=== PATIENT | female | born 1950 | race Caucasian/White ===

== ENCOUNTER → 2019-04-04 | Outpatient (CLI) | payer MEDICARE ==
[~2019-04-04] MED LIST: PROHANCE 279.3MG/ML 5ML VIAL (A9576) As Ordered ONE
--- NOTE | 2019-04-04 18:44 | REPVR ---
PROCEDURE INFORMATION: Exam: MR Head Without and With Contrast Exam date and time: 04/04/2019 4:16 PM Age: 69 years old Clinical indication: Pain; Headache; Migraine; Without aura; Does respond to medication; Severity not specified; Additional info: Chronic migraines TECHNIQUE: Imaging protocol: MR of the head without and with intravenous contrast. Contrast material: PROHANCE; Contrast volume: 9 ml; Contrast route: IV; COMPARISON: No relevant prior studies available. FINDINGS: Brain: No restricted diffusion is seen to suggest acute infarction. There is no acute intracranial hemorrhage, cerebral edema, or midline shift. Age-related cerebral and cerebellar substance loss is present. Minimal scattered increased T2 and FLAIR signal within the periventricular and subcortical white matter is present. This is nonspecific but likely related to chronic microangiopathic ischemic change. No enhancing lesions were identified after the administration of contrast. Ventricles: No hydrocephalus. Bones/joints: Unremarkable. Soft tissues: Unremarkable. Sinuses: Normal as visualized. No acute sinusitis. Mastoid air cells: Normal as visualized. No mastoid effusion. Orbits: Unremarkable. IMPRESSION: 1. No acute intracranial abnormality. 2. Chronic findings as discussed above. Electronically signed by: Bertram Calvillo On 04/04/2019 18:44:20 PM
--- NOTE | 2019-04-04 18:49 | REPVR ---
PROCEDURE INFORMATION: Exam: MR Orbit Without and With Contrast Exam date and time: 04/04/2019 4:25 PM Age: 69 years old Clinical indication: Pain; Headache; Without aura; Migraine responds to meds; Severity not specified; Additional info: Chronic migraines TECHNIQUE: Imaging protocol: MR Orbit was performed without and with intravenous contrast. 3D rendering: MIP and/or 3D reconstructed images were created by the technologist. Contrast material: PROHANCE; Contrast volume: 9 ml; Contrast route: IV; COMPARISON: No relevant prior studies available. FINDINGS: Limitations: The study is mildly limited due to patient motion artifact. Orbits: The orbits are unremarkable. The globes are intact. There is no orbital mass, orbital inflammation, or proptosis. The extraocular muscles are unremarkable. The optic nerves are of normal signal intensity and size. No enhancing lesions were identified after the administration of contrast. Sinuses: Unremarkable. No air-fluid levels. Soft tissues: Unremarkable. IMPRESSION: No acute abnormality. Electronically signed by: Bertram Calvillo On 04/04/2019 18:49:05 PM
== END ==
LOC: M RAD 16:04
PROVIDERS: ATTEND Ophthalmology
DX: R51 Headache (principal)
CPT/HCPCS: 70543; 70553; A9576